=== PATIENT | female | born 1985 | race Caucasian/White ===

== ENCOUNTER 2017-07-03 20:11 | Emergency (ER) | payer MEDICAID ==
[2017-07-03 20:26] VITALS: BMI 26.4
[2017-07-03 20:28] VITALS: BP 109/74; PULSE 100; RESP 18; TEMP 98.1; O2SAT 98
--- NOTE | 2017-07-03 21:18 | ED PDOC ---
Arrival/HPI - General Chief Complaint: ENT Problem Time Seen by Provider: 07/03/17 20:50 Historian: Patient - History of Present Illness Narrative History of Present Illness (Text): The patient is a 31yo female, presents to the emergency department for evaluation of cough and sore throat, present since yesterday. She reports associated post-nasal drip and headache. Pt states she took loratidine and tylenol with some relief of her symptoms. She denies any nasal discharge or rhinorrhea. Of note, patient's and son are present in the facility with similar complaints. The patient offers no additional medical complaints. Time/Duration: 24 hours Past Medical History - Provider Review Nursing Documentation Reviewed: Yes - Travel History Have you recently traveled outside [place] w/in the past 3 mons?: No - Infectious Disease Hx of Infectious Diseases: None - Psychiatric Hx Substance Use: No - Anesthesia Hx Anesthesia: No Family/Social History - Physician Review Nursing Documentation Reviewed: Yes Family/Social History: Other (non-contributory) Smoking Status: Never Smoked Hx Alcohol Use: No Hx Substance Use: No Allergies/Home Meds Allergies/Adverse Reactions: Allergies No Known Allergies Allergy (Verified 07/03/17 20:25) Home Medications: Home Meds Medication Instructions Recorded Confirmed No Known Home Med 07/03/17 07/03/17 Review of Systems - Review of Systems Constitutional: Other (chills). absent: Fevers ENT: Sore Throat, Other (post-nasal drip). absent: Rhinorrhea Respiratory: absent: SOB Cardiovascular: absent: Chest Pain Neurological: Headache. absent: Dizziness Physical Exam Vital Signs Reviewed: Yes Vital Signs Temp Pulse Resp BP Pulse Ox 07/03/17 20:26 98.1 F 100 H 18 109/74 98 Appearance: Positive for: Non-Toxic, Comfortable Mental Status: Positive for: Alert and Oriented X 3 - Systems Exam Head: Present: Atraumatic, Normocephalic Pupils: Present: PERRL Extroacular Muscles: Present: EOMI Ears: Present: Normal Mouth: Present: Moist Mucous Membranes Pharnyx: Present: ERYTHEMA (cobblestoning present). No: EXUDATE, TONSILS ENLARGED, Peritonsilar Swelling, Uvular Deviation Neck: Present: Normal Range of Motion. No: MIDLINE TENDERNESS Respiratory/Chest: Present: Clear to Auscultation. No: Respiratory Distress, Accessory Muscle Use Cardiovascular: Present: Regular Rate and Rhythm Neurological: Present: GCS=15, CN II-XII Intact, Speech Normal Skin: Present: Warm, Dry. No: Rashes Psychiatric: Present: Alert, Oriented x 3 - Scribe Statement The provider has reviewed the documentation as recorded by the Scribe Catina Good Provider Scribe Attestation: All medical record entries made by the Scribe were at my direction and personally dictated by me. I have reviewed the chart and agree that the record accurately reflects my personal performance of the history, physical exam, medical decision making, and the department course for this patient. I have also personally directed, reviewed, and agree with the discharge instructions and disposition. Disposition/Present on Arrival - Present on Arrival Any Indicators Present on Arrival: No History of DVT/PE: No History of Uncontrolled Diabetes: No Urinary Catheter: No History of Decub. Ulcer: No History Surgical Site Infection Following: None - Disposition Have Diagnosis and Disposition been Completed?: Yes Diagnosis: Upper respiratory infection Disposition: HOME/ ROUTINE Disposition Time: 21:15 Condition: STABLE Discharge Instructions (ExitCare): Upper Respiratory Infection (ED) Additional Instructions: Please follow up with your doctor. Drink plenty of fluids and take tylenol and ibuprofen as directed for body aches, headache, and fever. Return to the ER for any worsening symptoms, difficulty breathing, neck stiffness, fever lasting longer than a week, or for any other concerns. Referrals: [facility] [place] [facility] [place] - Follow up with primary PCP,NO [Primary Care Provider] - Follow up with primary Forms: [employer] (B[place]i)
== END 2017-07-03 21:54 | disposition home or self-care (01) ==
LOC: ED 20:11
DX: J06.9 Acute upper respiratory infection, unspecified (principal)